=== PATIENT | male | born 1990 | race Caucasian/White ===

== ENCOUNTER 2017-12-28 17:24 | Emergency (ER) | payer OTHER ==
[~2017-12-28] VITALS: Ht 182.9 cm; Wt 99.8 kg
[~2017-12-28 17:24] MED LIST: BENADRYL25 MG PO; REGLAN10 MG PO
[2017-12-28] MEDS ORDERED: PROMETH-CODEIN 65 ML PO ×2 (17:39→17:55)
[2017-12-28] MEDS ORDERED: VENTOLIN HFA18 GM INH (17:40)
[2017-12-28] MEDS ORDERED: PREDNISONE50 MG PO (17:55)
[2017-12-28] MEDS ORDERED: ZITHROMAX250 MG PO (17:55)
== END 2017-12-28 18:05 | disposition home or self-care (01) ==
LOC: ED 17:24
DX: J98.01 Acute bronchospasm (principal); Z79.899 Other long term (current) drug therapy
CPT/HCPCS: 99283; J7512

== ENCOUNTER 2020-06-02 22:23 | Emergency (ER) | payer OTHER ==
[~2020-06-02] VITALS: Ht 182.9 cm; Wt 137.0 kg
[~2020-06-02 22:23] MED LIST changes: +PREDNISONE50 MG PO; +PROMETH-CODEIN 65 ML PO; +VENTOLIN HFA18 GM INH; +ZITHROMAX250 MG PO
== END 2020-06-02 23:52 | disposition home or self-care (01) ==
LOC: ED 22:23
DX: R51.9 Headache, unspecified (principal)
CPT/HCPCS: 70450; 99284-25